=== PATIENT | female | born 1955 | race Caucasian/White ===

== ENCOUNTER → 2016-07-22 | Day surgery (SDC) | payer OTHER ==
[~2016-07-22] MED LIST: ALPR.25 PO; BUPIVACAINE HCL PF 0.5% 10 ML VIAL ONE; BUPIVACAINE/EPINEPHRINE 0.25% PF 10 ML VIAL ONE; FERR325T PO; GABA300C5 PO; LACTATED RINGER'S 1000 ML INJ 1,000 ML ONE; LEVO25TA4 PO; LIDOCAINE 1%/EPINEPHrine 1:100,000 SOLN 20 ML VIAL ONE; LOPE2CAP PO; LORA1TAB12 PO; MEGE40S PO; MIDAZOLAM HCL 2 MG/2 ML VIAL ONE; MORP1TAB25 PO; OXYC1CAP PO; PEMB1SOL; PERI8.6T PO; PROPOFOL 500 MG/50 ML BTL IV ONE; RANI300T PO; SERT25TA83 PO; SODIUM CHLORIDE 0.9% INJ 10 ML ONE; ZOFR8TAB PO; ceFAZolin INJ 1,000 MG VIAL ONE
--- NOTE | 2016-07-22 12:40 | TN ---
cc: KRYSTAL PAIGE MD,HESHAM OTERO,ELIAS Young M.D. DATE OF SURGERY: 07/22/2016 PREOPERATIVE DIAGNOSIS Metastatic melanoma, in need of immunotherapy, need of Nzgnwv-N-Knev. POSTOPERATIVE DIAGNOSIS Metastatic melanoma, in need of immunotherapy, need of Oxbhay-A-Iqrt. PROCEDURE Placement of left side Exsqny-K-Srto under fluoroscopic guidance. ANESTHESIA TIVA. SURGEON Dr. Mariee. INDICATION This is a pleasant unfortunate 61-year-old female who was found to have a large intra-abdominal tumor that was malignant melanoma. She also has a malignant melanoma in the cervical spine. She has just completed radiation therapy. Dr. Elias Otero asked me to place an Hckusz-V-Rvni for immunotherapy. PROCEDURE The patient was taken to the operating room and placed in the supine position. After anesthesia her left shoulder and chest is prepped with Betadine, anesthetized with Marcaine solution after time-out is done and she is given preoperative antibiotics. We cannulate the subclavian vein without difficulty, advance the guidewire and under fluoroscopic guidance, we make a subcutaneous pocket to accommodate the 9.6 [place] catheter. We then cut the catheter to about 22 cm so it lays in the superior vena cava. It is threaded through the introducer and then snapped into place in typical fashion with the snapping device onto the port and its aspirate flows quite easily and flushed with heparinized saline solution, then secured it to the deep layer with a 3-0 Vicryl. Skin is closed with 4-0 Vicryl. Steri-Strips are applied. Sterile bandage is applied. The patient tolerated the procedure well and had no immediate postop complication. She had a stat portable chest x-ray pending at the time of this dictation. MD MYKE Spencer/MARTINE /12:22 PM /12:29 PM
== END | disposition home or self-care (01) ==
LOC: ESDC 09:53
PROVIDERS: ATTEND Surgery
DX: C76.2 Malignant neoplasm of abdomen (principal)
CPT/HCPCS: 00532; 36561; 77001; C1788; J0690; J1642; J2250; J3010; J7120